=== PATIENT | female | born 1975 | race Hispanic/Latino ===

== ENCOUNTER 2023-07-21 09:50 | Emergency (ER) | payer BC ==
[2023-07-21 10:06] VITALS: BP 146/88
[2023-07-21 10:30] VITALS: BP 138/90
[2023-07-21 10:36] LABS: BASO% 0.6 % (0-3); EOS% 2.3 % (0-8); HEMATOCRIT 40.8 % (37.0-47.0); IMMATURE GRANULOCYTES 0.2 % (0.0-5.0); LYMPH% 43.8 % (15-41); MEAN CELL VOLUME 90.1 fL CALC (80.0-100.0); MEAN CORPUSCULAR HGB 30.9 pG CALC (26.0-32.0); MEAN CORPUSCULAR HGB CONC 34.3 g/dL CAL (32.0-36.0); MONO% 7.8 % (2-13); NEUT# 2.2 thou/uL (2.00-7.15); NEUT% 45.3 % (42-76); RED BLOOD COUNT 4.53 mill/uL (4.20-5.60); RED CELL DISTRI WIDTH 12.1 % (11.5-15.5)
[2023-07-21 10:37] LABS: URINE BILIRUBIN - DIPSTICK Negative (NEGATIVE); URINE BLOOD DIPSTICK Trace-lysed (NEGATIVE); URINE GLUCOSE - DIPSTICK Negative (NEGATIVE); URINE KETONE Negative (NEGATIVE); URINE LEUK ESTERASE Negative (NEGATIVE); URINE NITRITE - DIPSTICK Negative (Negative); URINE PH 5.5 (4.5-8.0); URINE PROTEIN - DIPSTICK Negative (NEG-TRACE); URINE UROBILINOGEN - DIPSTICK 0.2 E.U./dL (0.2)
[2023-07-21 10:38] LABS: URINE COLOR Yellow
[2023-07-21 10:45] VITALS: BP 146/89
[2023-07-21 11:02] LABS: ALBUMIN 4.3 g/dL (3.2-5.0); ALKALINE PHOSPHATASE 49 u/l (38-126); ANION GAP 9 (6-22 (CALC)); BILIRUBIN, TOTAL 0.6 mg/dL (0.02-1.3); BUN 11 mg/dL (7-17); BUN/CREATININE RATIO 11 (12-20 (CALC)); CARBON DIOXIDE 21 mmol/l (22-30); CHLORIDE 108 mmol/l (95-108); CREATININE 1.1 mg/dL (0.5-1.0); GFR FOR AFR.AMER. > 60 ML/MIN (>=60 (CALC)); GFR OTHER RACES 53 ML/MIN (>=60 (CALC)); LIPASE 114 u/l (23-300); SGOT/AST 49 u/l (14-36); SODIUM 134 mmol/l (137-146); TOTAL PROTEIN 7.9 g/dL (6.3-8.2)
[2023-07-21] MEDS ORDERED: NAPROXEN500 MG PO (13:18)
[2023-07-21 13:35] VITALS: BP 146/89
== END 2023-07-21 13:46 | disposition home or self-care (01) | DRG 552 ==
LOC: ED 09:50
PROVIDERS: Family Medicine
DX: M54.6 Pain in thoracic spine (principal); R10.30 Lower abdominal pain, unspecified; M25.552 Pain in left hip

== ENCOUNTER 2023-11-24 09:39 | Emergency (ER) | payer BC ==
[~2023-11-24] VITALS: Ht 165.1 cm; Wt 65.0 kg
[~2023-11-24 09:39] MED LIST: NAPROXEN500 MG PO
[2023-11-24 10:00] VITALS: BP 141/90
[2023-11-24 10:15] VITALS: BP 118/85
[2023-11-24 10:58] LABS: HCG SERUM/URINE (NEG/POS) NEGATIVE (NEGATIVE)
[2023-11-24 10:59] LABS: BASO% 0.5 % (0-3); EOS% 4.9 % (0-8); HEMATOCRIT 38.8 % (37.0-47.0); HEMOGLOBIN 13.5 g/dl (12.0-16.0); IMMATURE GRANULOCYTES 0.3 % (0.0-5.0); LYMPH% 36.4 % (15-41); MEAN CELL VOLUME 90.4 fL CALC (80.0-100.0); MEAN CORPUSCULAR HGB 31.5 pG CALC (26.0-32.0); MEAN CORPUSCULAR HGB CONC 34.8 g/dL CAL (32.0-36.0); MONO% 14.7 % (2-13); NEUT# 1.67 thou/uL (2.00-7.15); NEUT% 43.2 % (42-76); RED BLOOD COUNT 4.29 mill/uL (4.20-5.60); RED CELL DISTRI WIDTH 12.3 % (11.5-15.5)
[2023-11-24 11:00] LABS: ALBUMIN 4.3 g/dL (3.2-5.0); ALKALINE PHOSPHATASE 51 u/l (38-126); BILIRUBIN, TOTAL 0.4 mg/dL (0.02-1.3); BUN 11 mg/dL (7-17); BUN/CREATININE RATIO 10 (12-20 (CALC)); CHLORIDE 105 mmol/l (95-108); CREATININE 1.1 mg/dL (0.5-1.0); GFR FOR AFR.AMER. > 60 ML/MIN (>=60 (CALC)); GFR OTHER RACES 53 ML/MIN (>=60 (CALC)); POTASSIUM 4.3 mmol/l (3.5-5.1); SGOT/AST 53 u/l (14-36); TOTAL PROTEIN 7.8 g/dL (6.3-8.2)
[2023-11-24 11:02] LABS: ANION GAP 14 (6-22 (CALC)); CARBON DIOXIDE 26 mmol/l (22-30); SODIUM 141 mmol/l (137-146)
[2023-11-24] MEDS ORDERED: ZPAK PO (11:56)
[2023-11-24 12:10] VITALS: BP 140/87
== END 2023-11-24 12:19 | disposition home or self-care (01) | DRG 153 ==
LOC: ED 09:39
PROVIDERS: Family Medicine
DX: J11.1 Influenza due to unidentified influenza virus with other respiratory manifestations (principal); Z20.822 Contact with and (suspected) exposure to COVID-19